=== PATIENT | male | born 1990 | race Caucasian/White ===

== ENCOUNTER 2017-07-15 16:48 | Emergency (ER) | payer BC ==
[~2017-07-15] VITALS: Ht 170.2 cm; Wt 118.0 kg
[2017-07-15 16:52] VITALS: BP 143/93
--- NOTE | 2017-07-15 16:56 | NUR ---
PT AMBULATES TO BED 4
--- NOTE | 2017-07-15 16:59 | NUR ---
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 ER MD MADE AWARE OF PT STATUS.
[2017-07-15] MEDS ORDERED: DEXAMETHASONE 10 MG/ML VIAL IM ONE (17:05)
[2017-07-15] MEDS ORDERED: HYDROmorphone 1 MG/ML AMP IM ONE (17:05)
[2017-07-15] MEDS ORDERED: PROMETHAZINE 25 MG/ML VIAL IM ONE (17:10)
--- NOTE | 2017-07-15 18:03 | NUR ---
PT RESTING IN BED EYES CLOSED, AROUSABLE TO VOICE, REPORTS DECREASED HEADACHE PAIN 3/10, AND DECREASED NAUSEA.
[2017-07-15 18:45] VITALS: BP 139/79
--- NOTE | 2017-07-15 18:46 | NUR ---
Patient discharged with v/s stable. Written and verbal after care instructions given and explained. Patient alert, oriented and verbalized understanding of instructions. Ambulatory with steady gait. All questions addressed prior to discharge. ID band removed. Patient advised to follow up with PMD. Rx of fIORECET given. Patient educated on indication of medication including possible reaction and side effects. Opportunity to ask questions provided and answered.
[2017-07-15 20:19] LABS: BARBITURATE, URINE NEG. ng/ml (NEG <=200); PHENCYCLIDINE SCREEN,URINE NEG. ng/mL (NEG <=25)
[2017-07-15 20:44] LABS: BENZODIAZEPINE, URINE NEG. ng/mL (NEG <=200); CANNABINOID, URINE NEG. ng/mL (NEG <=50); COCAINE, URINE NEG. ng/mL (NEG <=300); OPIATE, URINE NEG. ng/mL (NEG <=2000)
== END 2017-07-15 18:46 | disposition home or self-care (01) ==
LOC: MED 16:48
DX: R51 Headache (principal); Z88.5 Allergy status to narcotic agent
CPT/HCPCS: 70450; 80305; 81002; 96372; 99285; J1100; J1170; J2550

== ENCOUNTER 2018-08-02 00:18 | Emergency (ER) | payer BC ==
[~2018-08-02] VITALS: Ht 172.7 cm; Wt 135.2 kg
[2018-08-02 00:23] VITALS: BP 142/105
--- NOTE | 2018-08-02 00:30 | NUR ---
PT TAKEN TO BED 1
--- NOTE | 2018-08-02 00:30 | NUR ---
41 Y/O MALE C/O 1CM LAC TO POSTERIOR LEFT 3RD DIDGIT X1 HR. PT WORKS WITH [employer]. PRESENTS TO ED FOR LAC REPAIR AND TDAP. STATES 2/10 PAIN. AFEBRILE WITH VSS. CMS INTACT BILAT UPPER EXTREMITIES. ER MD AWARE. CONTINUE TO MONITOR.
--- NOTE | 2018-08-02 01:00 | NUR ---
LAC CLEANSED WITH NS AND IODINE PREP SOLUTION. DRYED. COVERED WITH DERMABOND PER DR GUTIERREZ ORDERS. PT TOLLERATED WELL. CONTINUE TO MONITOR.
[2018-08-02 01:12] VITALS: BP 136/82
--- NOTE | 2018-08-02 01:13 | NUR ---
DISCHARGE PAPERS GIVEN TO PT. LAC INTACT. BLEEDING CONTROLLED. 0/10 PAIN. AFTER CARE INSTRUCTION GIVEN. RX OF IBUPROFEN GIVEN. SIDE EFFECTS EXPLAINED. INSTRUCTED TO F/U WITH PCP AND WHEN TO RETURN TO ER. ALL QUESTIONS ANSWERED.
== END 2018-08-02 01:13 | disposition home or self-care (01) ==
LOC: MED 00:18
DX: S61.210A Laceration without foreign body of right index finger without damage to nail, initial encounter (principal); R03.0 Elevated blood-pressure reading, without diagnosis of hypertension; Z88.6 Allergy status to analgesic agent; W31.1XXA Contact with metalworking machines, initial encounter; Y93.89 Activity, other specified; Y92.69 Other specified industrial and construction area as the place of occurrence of the external cause; Y99.0 Civilian activity done for income or pay
CPT/HCPCS: 12001; 90471; 90715; 99283

== ENCOUNTER 2019-02-18 14:20 | Emergency (ER) | payer BC, OTHER ==
[~2019-02-18] VITALS: Ht 170.2 cm; Wt 133.8 kg
[2019-02-18 15:09] VITALS: BP 143/86
--- NOTE | 2019-02-18 15:16 | NUR ---
FLU SWAB COLLECTED. Addendum: 02/18/19 at 1516 by [email or web address] WAIT AT [facility].
--- NOTE | 2019-02-18 16:08 | NUR ---
PT AMBULATED TO ER BED 12
[2019-02-18] MEDS ORDERED: DEXAMETHASONE 10 MG/ML VIAL IM ONE (16:40)
[2019-02-18] MEDS ORDERED: ALBUTEROL SULFATE/IPRATROPIU 3 ML SOL IH ONE (16:40)
[2019-02-18] MEDS ORDERED: hydrOXYzine HCL 25 MG TAB PO ONE (16:40)
[2019-02-18] MEDS ORDERED: MECLIZINE 25 MG TAB PO ONE (16:40)
--- NOTE | 2019-02-18 16:50 | NUR ---
ERMD AT BEDSIDE
--- NOTE | 2019-02-18 17:30 | NUR ---
C/O COUGH AND SORE THROAT ACCOMPANIED BY SUBJECTIVE FEVER. PT ALSO REPORTS L EAR PAIN. AFEBRILE AT THIS TIME. DENIES N/V/D. O2 SAT RA 96%, BREATHING EVEN AND UNLABORED. BED IN LOW POSITION, SIDE RAIL UP X1
[2019-02-18 18:00] VITALS: BP 130/80
--- NOTE | 2019-02-18 18:00 | NUR ---
Patient discharged with v/s stable. Written and verbal after care instructions given and explained. Patient alert, oriented and verbalized understanding of instructions. Ambulatory with steady gait. All questions addressed prior to discharge. ID band removed. Patient advised to follow up with PMD. Rx of PROMETHAZINE, TAMIFLU, AND FIORICET given. Patient educated on indication of medication including possible reaction and side effects. Opportunity to ask questions provided and answered.
== END 2019-02-18 18:00 | disposition home or self-care (01) ==
LOC: MED 14:20
DX: J10.1 Influenza due to other identified influenza virus with other respiratory manifestations (principal); Z88.1 Allergy status to other antibiotic agents
CPT/HCPCS: 87804; 94640; 96372; 99283; J1100; J7620; J8597

== ENCOUNTER 2019-02-22 00:50 | Emergency (ER) | payer OTHER ==
[~2019-02-22] VITALS: Ht 170.2 cm; Wt 133.8 kg
[2019-02-22 00:57] VITALS: BP 161/92
--- NOTE | 2019-02-22 01:00 | NUR ---
TO LOBBY A/W BED AMBULATORY
--- NOTE | 2019-02-22 01:25 | NUR ---
DR GUTIERREZ EVALUATING PATIENT AT BEDSIDE.
[2019-02-22] MEDS ORDERED: KETOROLAC 30 MG/ML VIAL IM ONE (01:30)
--- NOTE | 2019-02-22 01:36 | NUR ---
28 YO M BIB SELF AND GIRLFRIEND PRESENTS TO ED C/O 10/31 SORE THROAT WITH NON PRODUCTIVE HACKING COUGH X 2 DAYS. PT STATES "WHEN I SPIT IT COMES OUT BLOODY". PT WAS SEEN 3 DAYS AGO FOR SIMILAR S/SX AND WAS DX WITH INFLUENZA. PT STATES HE HAS BEEN TAKING TAMIFLU BUT HAS NOT TAKEN ANYTHING FOR SORE THROAT. DENIES NVD. ALSO REPORTS HEARING LOSS TO LEFT EAR. WAS DX WITH MASTOIDITIS AT ARROWHEAD APPROX X 1 MONTH AGO.
--- NOTE | 2019-02-22 01:40 | NUR ---
MEDICATED WITH 30 MG IM TORADOL FOR 10/31 SORE THROAT. WILL REASSESS.
--- NOTE | 2019-02-22 02:10 | NUR ---
REPORTS PAIN RELIEF; 0/10. PT STATES "I FEEL MORE RELAXED NOW",.
[2019-02-22 02:11] VITALS: BP 161/92
--- NOTE | 2019-02-22 02:11 | NUR ---
Patient discharged with v/s stable. Written and verbal after care instructions given and explained. Patient alert, oriented and verbalized understanding of instructions. Ambulatory with steady gait. All questions addressed prior to discharge. ID band removed. Patient advised to follow up with PMD. Rx of Naproxyn given. Patient educated on indication of medication including possible reaction and side effects. Opportunity to ask questions provided and answered.
== END 2019-02-22 02:11 | disposition home or self-care (01) ==
LOC: MED 00:50
DX: J10.1 Influenza due to other identified influenza virus with other respiratory manifestations (principal); Z88.6 Allergy status to analgesic agent
CPT/HCPCS: 96372; 99283; J1885